=== PATIENT | male | born 1980 | race Caucasian/White ===

== ENCOUNTER 2017-11-09 17:27 | Emergency (ER) | payer BC ==
[2017-11-09 18:14] LABS: #Basophils 0.1 thou/uL (0.0-0.2); #Eosinphils 0.1 thou/uL (0.0-0.7); #Lymphocytes 2.1 thou/uL (1.20-3.40); #Monocytes 0.5 thou/uL (0.11-0.59); #Neutrophils 2.8 thou/uL (1.40-6.50); %Eosinophils 1.3 % (0.0-10.0); %Monocytes 8.4 % (0.0-10.0); %Neutrophils 51.3 % (42.0-75.0); Hemoglobin 14.8 g/dL (14.0-18.0); Mean Corpuscular Hemoglobin 33.2 pg (27.0-31.0); Mean Corpuscular Volume 94.8 fl (80.0-94.0); Platelet Count 231 thou/uL (130-400); RBC Distribution Width 11.3 % (11.5-14.5); Red Blood Cell (RBC) Count 4.47 mill/uL (4.70-6.10); White Blood Cell (WBC) Count 5.5 thou/uL (4.8-10.8)
[2017-11-09 18:23] LABS: PTT 31.9 SEC (22.9-36.1); Prothrombin Time 13.4 SEC (12.0-14.7)
[2017-11-09 18:33] LABS: ALT (SGPT) 11 U/L (8-55); AST (SGOT) 10 U/L (5-34); Albumin 4.5 g/dL (3.5-5.0); Alkaline Phosphatase 39 U/L (40-150); Anion Gap 11 mmol/L (10-20); BUN (Urea Nitrogen) 14 mg/dL (8.9-20.6); Bilirubin, Total 0.8 mg/dL (0.2-1.2); Calc. Creatinine Clearance 0 mL/min (70-130); Calcium 9.6 mg/dL (7.8-10.44); Carbon Dioxide 26 mmol/L (22-29); Chloride 108 mmol/L (98-107); Estimated GFR-MDRD 72; Globulin 2.2 g/dL (2.4-3.5); Glucose 111 mg/dL (70-105); Potassium 3.7 mmol/L (3.5-5.1); Protein, Total 6.7 g/dL (6.0-8.3); Sodium 141 mmol/L (136-145)
[2017-11-09] MEDS ORDERED: Adacel (T-DAP) 0.5 ML VIAL ONE (19:33)
[2017-11-09] MEDS ORDERED: Amoxicillin/Potassium Clav 875 MG TAB ONE (19:33)
--- NOTE | 2017-11-09 21:14 | RAD ---
THREE VIEWS LEFT THUMB 11/09/17 HISTORY: Left thumb pain status post snake bite. AP, lateral, and oblique views left thumb is obtained. Soft tissue swelling is seen. No osseous lesions seen. IMPRESSION: Soft tissue swelling left thumb. No bony abnormalities noted. POS: JULES
[2017-11-09] MEDS ORDERED: Ibuprofen 800 MG TAB ONE (21:41)
[2017-11-09] MEDS ORDERED: Bupivacaine 0.5% 10 ML VIAL ONE (22:14)
== END 2017-11-09 23:29 | disposition home or self-care (01) ==
LOC: ERS 17:27
DX: T63.061A Toxic effect of venom of other North and South American snake, accidental (unintentional), initial encounter (principal); Z23 Encounter for immunization
CPT/HCPCS: 26010; 80053; 85025; 85610; 85730; 90471; 90715; J3490

== ENCOUNTER 2017-11-10 17:04 | Emergency (ER) | payer BC ==
[2017-11-10] MEDS ORDERED: Bacitracin Zinc 1 Packet ONE (18:09)
== END 2017-11-10 18:54 | disposition home or self-care (01) ==
LOC: ERS 17:04
DX: T63.001D Toxic effect of unspecified snake venom, accidental (unintentional), subsequent encounter (principal)
CPT/HCPCS: 99283

== ENCOUNTER 2017-11-15 11:00 | Day surgery (SDC) | payer BC ==
[2017-11-14 11:16] VITALS: BMI 31.4
[2017-11-15] MEDS ORDERED: PROPOFOL 200 MG/20 ML VIAL ONE (13:45)
[2017-11-15] MEDS ORDERED: Lidocaine 1% PF 5 ML VIAL ONE (13:45)
[2017-11-15] MEDS ORDERED: Bupivacaine PF 0.5% 30 ML VIAL ONE (17:04)
[2017-11-15] MEDS ORDERED: Bacitracin Zinc Ointment 30 gm TUBE ONE (17:04)
[2017-11-15] MEDS ORDERED: Midazolam HCl 2 mg/2 ml Vial ONE (17:14)
[2017-11-15] MEDS ORDERED: Fentanyl 100 MCG/2 ML VIAL ONE (17:14)
[2017-11-15] MEDS ORDERED: Clindamycin/D5W 600 mg/50 ml Premix Bag ONE (17:15)
[2017-11-15] MEDS ORDERED: Ketorolac Tromethamine 30 MG/ML VIAL ONE ×2 (18:24)
--- NOTE | 2017-11-16 02:06 | OP ---
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 COMPLICATIONS: None. FINDINGS: Marked epidermal necrosis, minimal dermal necrosis with an open wound of approximately 3 c m x 3 mm was debrided. PROCEDURE PERFORMED: Debridement of subcutaneous ([address]11 level) using the following techniques: A. Tenotomy scissors and [place] blade. B. Excisional technique. C. Down to and including some fat, but not involving fascia or bone/joint. D. No gross infection found on this wound, but necrosis found dorsal and palmar to this, which was d ebrided. TOURNIQUET TIME: 5 minutes. ESTIMATED BLOOD LOSS: 5 mL. INDICATION: The patient with unfortunate bite from a copperhead while trying to rescue the snake fro m his children approximately 6 days ago. Already had emergency room level care, but presented to [facility] with marked amount of tissue necrosis and we were concerned about infection versus open wound kari t might need debridement. DESCRIPTION OF PROCEDURE: After successful general LMA technique, the limb was prepped and draped. He received 10 mL of 0.5% metacarpophalangeal joint level block at the thumb, especially on the radial side where the injury took place. So, we then exsanguinated the limb, inflated tourniquet to 250 mmHg pressure. The patient then had the wound debrided using the technique listed above and we unroofed an epidermal area that was almost 3.5 x 2 cm, but the dermal loss was only over a 3 cm long by 2 to 3 mm wide are a. We then opened this, no necrosis was seen in subcutaneous fascia. We irrigated this area, debrid ement, curetted the area and we took off the epidermis and noticed when we inflated the tourniquet, i t was bleeding at all sites although markedly edematous. Using three 4-0 nylon, we closed the wound loosely, placed a bulky dressing with bacitracin and [employer], and the patient left the operating room without evidence of anesthetic or operative complication.
== END 2017-11-15 20:29 | disposition home or self-care (01) ==
LOC: SDC 11:00
PROVIDERS: ATTEND Orthopaedic Surgery Hand Surgery
PROC: 0JBK0ZZ Excision of Left Hand Subcutaneous Tissue and Fascia, Open Approach (ICD-10-PCS; principal; 2017-11-15)
DX: T63.091A Toxic effect of venom of other snake, accidental (unintentional), initial encounter (principal); I96 Gangrene, not elsewhere classified
CPT/HCPCS: J1885; J2001; J2250; J2704; J3010; J3490; S0020